=== PATIENT | female | born 1960 | race Caucasian/White ===

== ENCOUNTER 2022-05-23 14:04 | Emergency (ER) | payer OTHER ==
[~2022-05-23] VITALS: Ht 154.9 cm; Wt 49.9 kg
[2022-05-23] MEDS ORDERED: TRULICITY0.75 MG/0. SUBCUTANEO (15:12)
[2022-05-23] MEDS ORDERED: KETO10TA2 PO (18:21)
== END 2022-05-23 18:39 | disposition home or self-care (01) ==
LOC: ER 14:04
DX: S52.031A Displaced fracture of olecranon process with intraarticular extension of right ulna, initial encounter for closed fracture (principal); W18.39XA Other fall on same level, initial encounter; Y93.01 Activity, walking, marching and hiking; Y92.480 Sidewalk as the place of occurrence of the external cause; E11.9 Type 2 diabetes mellitus without complications; Z79.84 Long term (current) use of oral hypoglycemic drugs